=== PATIENT | male | born 2005 | race Caucasian/White ===

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

== ENCOUNTER 2024-10-25 08:25 | Emergency (ER) | payer OTHER, BC, MEDICAID, SELFPAY ==
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
[2024-10-25 08:28] VITALS: BP 141/74; PULSE 82; RESP 16; TEMP 36.4; O2SAT 99
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
== END 2024-10-25 10:14 | disposition home or self-care (01) ==
PROVIDERS: Emergency Provider Emergency Medicine
DX: S80.02XA Contusion of left knee, initial encounter (principal); V47.5XXA Car driver injured in collision with fixed or stationary object in traffic accident, initial encounter
CPT/HCPCS: 73562; 99283; L0140